=== PATIENT | male | born 2005 | race Caucasian/White ===

== ENCOUNTER 2024-03-18 13:36 | Observation (INO) | payer OTHER ==
[~2024-03-18] VITALS: Ht 157.5 cm; Wt 90.3 kg
[2024-03-18] MEDS: NS 1,000 ML IV ONE (14:12)
[2024-03-18] MEDS: KETOROLAC 30 MG/ML 1ML VIAL IV ONE (14:12)
[2024-03-18 14:14] LABS: BASO # 0.1 10^3/uL (0.0-0.2); BASO % 0.6 % (0.0-1.0); EOS # 0.3 10^3/uL (0.0-0.5); EOS % 2.9 % (0.0-3.0); HEMATOCRIT 44.9 % (42.0-52.0); HEMOGLOBIN 15.6 g/dl (13.5-17.5); LYMPH # 1.6 10^3/uL (1.5-5.0); LYMPH % 15.6 % (24.0-44.0); MEAN CORPUSCULAR HEMOGLOBIN 30.6 pg (27.0-33.0); MEAN CORPUSCULAR HGB CONC 34.7 g/dl (32.0-36.5); MONO # 0.5 10^3/uL (0.0-0.8); MONO % 5.1 % (2.0-8.0); NEUTROPHILS # 7.5 10^3/uL (1.5-8.5); NEUTROPHILS % 75.5 % (36.0-66.0); PLATELET COUNT, AUTOMATED 282 10^3/uL (150-450); WHITE BLOOD COUNT 9.9 10^3/uL (4.0-10.0)
[2024-03-18 14:38] LABS: LIPASE 40 U/L (12-53)
[2024-03-18 14:40] LABS: ALKALINE PHOSPHATASE 149 U/L (46-116); ALT/SGPT 24 U/L (7.0-40); AST/SGOT 14 U/L (<34); BILIRUBIN,DIRECT 0.3 MG/DL (<0.4); BLOOD UREA NITROGEN 12 MG/DL (9-23); CARBON DIOXIDE LEVEL 23 MMOL/L (20-31); CHLORIDE LEVEL 114 MMOL/L (98-107); CREATININE FOR GFR 0.91 MG/DL (0.70-1.30); GLUCOSE, FASTING 115 MG/DL (60-100); SODIUM LEVEL 141 MMOL/L (136-145)
[2024-03-18] MEDS: ONDANSETRON 4MG 2ML VIAL IV ONE (16:14)
[2024-03-18] MEDS: MORPHINE 4 MG/ML 1ML VIAL IV ONE ×2 (16:15→18:12)
[2024-03-18] MEDS: TAMSULOSIN 0.4 MG CAP PO ONE (16:52)
[2024-03-18] MEDS ORDERED: PERC5TAB12 PO (17:34)
[2024-03-18] MEDS ORDERED: FLOM0.4C39 PO (17:35)
[2024-03-18] MEDS ORDERED: MORPHINE 4 MG/ML 1ML VIAL IV PRN (17:50)
[2024-03-18] MEDS ORDERED: ONDANSETRON 4MG 2ML VIAL IV PRN (17:50)
[2024-03-18] MEDS ORDERED: MORPHINE 2 MG/ML 1ML VIAL IV PRN (17:50)
[2024-03-18] MEDS ORDERED: ACETAMINOPHEN TAB 650MG DOSE (2X325MG) PO PRN (17:50)
[2024-03-18] MEDS ORDERED: PROMETHAZINE 25MG/ML 1ML VIAL IV PRN (17:50)
[2024-03-18] MEDS: NS 1,000 ML IV SCH ×2 (18:11→18:33)
[2024-03-18] MEDS: PROMETHAZINE 25MG/ML 1ML VIAL IV ONE (18:12)
[2024-03-18] MEDS ORDERED: HOME MED LIST COMPLETE! XX SCH (18:50)
[2024-03-18] MEDS: TAMSULOSIN 0.4 MG CAP PO SCH (19:25)
[2024-03-18 21:10] VITALS: BP 114/63; TEMP 97.9; O2SAT 98
[2024-03-18] MEDS: PANTOPRAZOLE 40MG VIAL IV SCH (21:34)
[2024-03-18] MEDS: KETOROLAC 30 MG/ML 1ML VIAL IV SCH (21:34)
[2024-03-19 05:05] VITALS: BP 100/52; TEMP 97.9; O2SAT 99
[2024-03-19 06:52] LABS: HEMATOCRIT 41.3 % (42.0-52.0); MEAN CORPUSCULAR HEMOGLOBIN 30.5 pg (27.0-33.0); MEAN CORPUSCULAR HGB CONC 33.9 g/dl (32.0-36.5); PLATELET COUNT, AUTOMATED 244 10^3/uL (150-450); RED BLOOD COUNT 4.59 10^6/uL (4.30-6.10); WHITE BLOOD COUNT 7.1 10^3/uL (4.0-10.0)
[2024-03-19] MEDS ORDERED: PERC5TAB12 PO (07:20)
[2024-03-19] MEDS ORDERED: ACET1TAB55 PO (07:20)
[2024-03-19] MEDS ORDERED: FLOM0.4C39 PO (07:20)
[2024-03-19 07:21] LABS: ALKALINE PHOSPHATASE 126 U/L (46-116); ALT/SGPT 16 U/L (7.0-40); AST/SGOT 10 U/L (<34); BILIRUBIN,TOTAL 0.9 MG/DL (0.3-1.2); BLOOD UREA NITROGEN 8 MG/DL (9-23); CALCIUM LEVEL 8.1 MG/DL (8.5-10.1); CARBON DIOXIDE LEVEL 25 MMOL/L (20-31); CHLORIDE LEVEL 114 MMOL/L (98-107); CREATININE FOR GFR 0.79 MG/DL (0.70-1.30); GLUCOSE, FASTING 77 MG/DL (60-100); POTASSIUM SERUM 3.8 MMOL/L (3.5-5.1); SODIUM LEVEL 143 MMOL/L (136-145); TOTAL PROTEIN 5.7 G/DL (5.7-8.2)
[2024-03-19] MEDS ORDERED: IRON SUCROSE 200 MG in NS 100 ML OVER 1 HR IV ONE (10:00)
[2024-03-19 12:00] VITALS: BP 116/78; TEMP 98.1; O2SAT 94
== END 2024-03-19 13:15 | disposition home or self-care (01) ==
LOC: M ED 13:36 → EDBD 13:36 → M ED INP 17:47 → UNDOADMOB 17:47 → M MS5PR 21:23
PROVIDERS: ADMIT Internal Medicine; ATTEND Internal Medicine
DX: N13.2 Hydronephrosis with renal and ureteral calculous obstruction (principal); M54.50 Low back pain, unspecified; Z79.899 Other long term (current) drug therapy
CPT/HCPCS: 36415; 74176; 80047; 80048; 80053; 80076; 81001; 83690; 85025; 85027; 93041; 96374; 96375; 96376; 99285; J1885; J2405; J2470; J2550